=== PATIENT | female | born 1965 | race Caucasian/White ===

== ENCOUNTER → 2016-10-06 | Outpatient (CLI) | payer OTHER ==
[2016-10-06 12:58] LABS: HEMOGLOBIN A1C 5.55 % (4.2-6.0); MEAN BLOOD GLUCOSE (CALC) 98.815 mg/dL
== END ==
LOC: MOB LAB 11:40
PROVIDERS: ATTEND Family Medicine
DX: R73.9 Hyperglycemia, unspecified (principal); R79.0 Abnormal level of blood mineral
CPT/HCPCS: 36415; 82728; 83036; 83540; 83550